=== PATIENT | female | born 1945 | race Caucasian/White ===

== ENCOUNTER 2016-12-26 11:19 | Observation (INO) | payer MEDICARE, OTHER ==
[~2016-12-26] VITALS: Ht 165.1 cm; Wt 62.5 kg
[2016-12-26 12:54] LABS: HEMOGLOBIN 11.9 gm/dl (12.3-15.3); RED BLOOD COUNT 4.08 M/UL (4.00-5.10); WHITE BLOOD COUNT 8.1 K/UL (4.5-11.0)
[2016-12-27] MEDS ORDERED: ASPIR 8181 MG PO (02:14)
[2016-12-27] MEDS ORDERED: PRAVASTATIN SOD40 MG PO (02:15)
[2016-12-27] MEDS ORDERED: HYZAAR 100-12.1 EACH PO (02:15)
[2016-12-27] MEDS ORDERED: DUEXIS 800-26.1 EACH PO (02:15)
[2016-12-27] MEDS ORDERED: METOPROLOL TART25 MG PO (02:17)
== END 2016-12-27 16:59 | disposition home or self-care (01) ==
LOC: ER1 11:19 → ZEROF 16:25 → MED SURG 4 16:25
PROVIDERS: Emergency Medicine; ADMIT Internal Medicine Infectious Disease
DX: R55 Syncope and collapse (principal); R42 Dizziness and giddiness; Z86.73 Personal history of transient ischemic attack (TIA), and cerebral infarction without residual deficits; I10 Essential (primary) hypertension; E78.5 Hyperlipidemia, unspecified; I35.0 Nonrheumatic aortic (valve) stenosis; I34.0 Nonrheumatic mitral (valve) insufficiency; R01.1 Cardiac murmur, unspecified; Z79.82 Long term (current) use of aspirin; Z79.1 Long term (current) use of non-steroidal anti-inflammatories (NSAID); Z79.899 Other long term (current) drug therapy
CPT/HCPCS: ECHO; 36415; 70450; 71010; 72125; 72128; 72131; 80048; 80053; 80061; 83735; 83880; 84443; 84484; 85025; 85379; 85610; 85730; 93005; 93306; 93880; 99285; G0378; J7030; J7050; Q9963

== ENCOUNTER → 2020-08-07 | Outpatient (CLI) | payer MEDICARE, OTHER ==
[~2020-08-07] MED LIST: ASPIR 8181 MG PO; BENADRYL 25MG C25 MG PO; DUEXIS 800-26.1 EACH PO; HYZAAR 100-12.1 EACH PO; METOPROLOL TART25 MG PO; NORCO 5-325 TA1 EACH PO; PRAVASTATIN SOD40 MG PO; PREDNISONE20 MG PO
== END ==
LOC: ECHO 08-02 11:03
DX: I35.0 Nonrheumatic aortic (valve) stenosis (principal); I51.7 Cardiomegaly; I34.8 Other nonrheumatic mitral valve disorders; I35.8 Other nonrheumatic aortic valve disorders; I10 Essential (primary) hypertension
CPT/HCPCS: ECHO; 93306

== ENCOUNTER → 2020-10-24 | Outpatient (CLI) | payer MEDICARE, OTHER | LOC: EXRD 14:27 | DX: I50.9 Heart failure, unspecified (principal); I51.7 Cardiomegaly | CPT/HCPCS: 71045 ==

== ENCOUNTER 2021-06-19 17:26 | Emergency (ER) | payer MEDICARE, OTHER ==
[2021-06-19 18:51] LABS: HEMOGLOBIN 10.3 gm/dl (12.3-15.3); RED BLOOD COUNT 3.63 M/UL (4.00-5.10); WHITE BLOOD COUNT 5.9 K/UL (4.5-11.0)
== END 2021-06-19 22:00 | disposition home or self-care (01) ==
LOC: ER1 17:26
PROVIDERS: Physician Assistant
DX: R04.0 Epistaxis (principal); I10 Essential (primary) hypertension; Z86.73 Personal history of transient ischemic attack (TIA), and cerebral infarction without residual deficits
CPT/HCPCS: 30903; 85025; 85610; 99283

== ENCOUNTER 2021-10-17 18:13 | Inpatient (IN) | payer MEDICARE, OTHER ==
[~2021-10-17] VITALS: Ht 165.1 cm; Wt 61.2 kg
[2021-10-17 18:59] LABS: HEMOGLOBIN 11.7 gm/dl (12.3-15.3); RED BLOOD COUNT 4.27 M/UL (4.00-5.10); WHITE BLOOD COUNT 4.5 K/UL (4.5-11.0)
[2021-10-18 05:24] LABS: HEMOGLOBIN 11.3 gm/dl (12.3-15.3); RED BLOOD COUNT 4.13 M/UL (4.00-5.10)
[2021-10-18 05:25] LABS: WHITE BLOOD COUNT 5.8 K/UL (4.5-11.0)
[2021-10-18] MEDS ORDERED: RAMIPRIL10 MG PO (11:01)
[2021-10-18] MEDS ORDERED: AMLODIPINE BESYL5 MG PO (11:02)
[2021-10-19 06:45] LABS: HEMOGLOBIN 11.3 gm/dl (12.3-15.3); RED BLOOD COUNT 4.13 M/UL (4.00-5.10); WHITE BLOOD COUNT 4.9 K/UL (4.5-11.0)
[2021-10-19] MEDS ORDERED: NITROGLYCERIN0.4 MG SL (13:37)
[2021-10-19] MEDS ORDERED: ATORVASTATIN CA20 MG PO (13:37)
== END 2021-10-19 15:28 | disposition left against medical advice (07) | DRG 281 ==
LOC: ER1 18:13 → CDU 22:20 → CCU 22:20
PROVIDERS: Internal Medicine; Physician Assistant Medical; ADMIT Internal Medicine
PROC: B24BZZZ Ultrasonography of Heart with Aorta (ICD-10-PCS; principal; 2021-10-18)
DX: I16.9 Hypertensive crisis, unspecified (principal); I21.A1 Myocardial infarction type 2; E87.1 Hypo-osmolality and hyponatremia; Z20.822 Contact with and (suspected) exposure to COVID-19; I50.32 Chronic diastolic (congestive) heart failure; I69.351 Hemiplegia and hemiparesis following cerebral infarction affecting right dominant side; I16.1 Hypertensive emergency; I08.1 Rheumatic disorders of both mitral and tricuspid valves; I27.20 Pulmonary hypertension, unspecified; D63.1 Anemia in chronic kidney disease; Z79.01 Long term (current) use of anticoagulants; Z79.82 Long term (current) use of aspirin; Z82.3 Family history of stroke
CPT/HCPCS: ECHO; 36415; 71045; 80048; 80053; 82550; 82553; 83735; 83880; 84484; 85025; 85027; 85610; 85730; 93005; 93306; 96374; 99285; J1644